=== PATIENT | female | born 1935 | race Two or more races ===

== ENCOUNTER 2021-02-07 16:49 | Emergency (ER) | payer OTHER ==
[~2021-02-07] VITALS: Ht 152.4 cm; Wt 52.2 kg
[2021-02-07] MEDS ORDERED: LISI-782 PO (17:31)
[2021-02-07] MEDS ORDERED: GABA-532 PO (17:31)
[2021-02-07] MEDS ORDERED: WARF3TAB59 PO ×2 (17:31)
[2021-02-07] MEDS ORDERED: ACET-73 PO (17:31)
[2021-02-07] MEDS ORDERED: OMEP20CA15 PO (17:31)
[2021-02-07] MEDS ORDERED: ALBU2.5V13 NEB (17:31)
[2021-02-07] MEDS ORDERED: MONT10TA22 PO (17:31)
[2021-02-07] MEDS ORDERED: DILT240C88 PO (17:31)
[2021-02-07] MEDS ORDERED: NITR0.4T SL (17:31)
[2021-02-07 17:53] LABS: HEMATOCRIT 34.1 % (31.2-41.9); MEAN CORPUSCULAR HEMOGLOBIN 28.9 uug (24.7-32.8); MEAN CORPUSCULAR VOLUME 84.9 fL (75.5-95.3); PLATELET COUNT (AUTO) 275 K/uL (179-408)
[2021-02-07 17:58] LABS: CREATININE 0.8 mg/dL (0.6-1.3); POTASSIUM 4.1 mmol/L (3.5-5.1)
[2021-02-07 18:14] LABS: BILIRUBIN,DIRECT 0.1 mg/dL (0.0-0.2); BILIRUBIN,TOTAL 0.3 mg/dL (0.2-1.0); TOTAL PROTEIN, SERUM 7.1 g/dL (6.4-8.2)
[2021-02-07 18:59] LABS: *BILIRUBIN,URIN NEGATIVE (NEGATIVE); *CLARITY,URINE CLEAR (CLEAR); *COLOR,URINE YELLOW (YELLOW); *KETONES,URINE NEGATIVE (NEGATIVE); *UROBILINOGEN,URINE 0.2 E.U./dl (NORMAL); LEUKOCYTE ESTERASE ,URINE 1+ (NEGATIVE); NITRITE, URINE NEGATIVE (NEGATIVE); PH,URINE 7.5 (5.0-8.0); UGLUCOSE NEGATIVE (NEGATIVE)
[2021-02-07 19:00] LABS: *BLOOD, URINE TRACE (NEGATIVE)
--- NOTE | 2021-02-07 19:15 | NUR ---
Assumed care of patient from day shift nurse. Patient AAOx4. In no apparent distress. Denies any pain when asked. Friend at bedside.
[2021-02-07] MEDS ORDERED: THYR30TA2 PO (19:35)
--- NOTE | 2021-02-07 21:07 | NUR ---
Dr. Munroe at bedside.
--- NOTE | 2021-02-07 21:14 | NUR ---
Patient discharged to home in stable condition. Written and verbal after care instructions given. Patient verbalizes understanding of instructions. Stressed follow up or return to ER for worsening s/s. Patient ambulated from the ER with steady gait. All belongings with patient.
[2021-02-07 21:15] VITALS: BP 126/73
[2021-02-08 08:49] LABS: BACTERIA,URINE NONE SEEN /HPF (NONE SEEN); RBC,URINE 0-3 /HPF (0-3); SQUAMOUS EPITHELIAL CELL,UR FEW /HPF (NONE SEEN); WBC,URINE NONE SEEN /HPF (0-3)
== END 2021-02-07 21:14 | disposition home or self-care (01) ==
LOC: ER 16:51
DX: I48.91 Unspecified atrial fibrillation (principal); E03.9 Hypothyroidism, unspecified; R94.31 Abnormal electrocardiogram [ECG] [EKG]; Z79.01 Long term (current) use of anticoagulants; Z79.899 Other long term (current) drug therapy; K21.9 Gastro-esophageal reflux disease without esophagitis
CPT/HCPCS: 36415; 70030-TC; 71045; 83735; 84443; 85025; 85730; 87086; 93005; A4663